=== PATIENT | male | born 1955 | race Caucasian/White ===

== ENCOUNTER → 2016-09-24 | Outpatient (CLI) | payer MEDICARE, MEDICAID ==
[~2016-09-24] MED LIST: ELAVIL50 MG PO; FISH OIL1 GM PO; GLUCOPHAGE1000 MG PO; GLUCOTROL10 MG PO; HALFPRIN81 MG PO; INDERAL LA80 MG PO; INVEGA9 MG PO; INVOKANA100 MG PO; KLONOPIN1 MG PO; LANTUS SOL100 UNIT/1 SUBCUT; LATUDA80 MG PO; LYRICA100 MG PO; MOBIC15 MG PO; NORCO 325-5 MG1 TAB PO; OMEPRAZOLE20 M1 PO; PROBIOTIC1 EAC1 PO; TYLENOL325 MG PO; ULTRAM50 MG PO; ZOCOR20 MG PO; ZOFRAN4 MG PO
== END | disposition short-term general hospital (02) ==
LOC: CLVASC 14:08
DX: I73.9 Peripheral vascular disease, unspecified (principal); E11.40 Type 2 diabetes mellitus with diabetic neuropathy, unspecified

== ENCOUNTER → 2016-10-29 | Outpatient (CLI) | payer MEDICARE, MEDICAID | END | disposition short-term general hospital (02) | LOC: CLVASC 12:48 | DX: L97.519 Non-pressure chronic ulcer of other part of right foot with unspecified severity (principal); Z86.79 Personal history of other diseases of the circulatory system; Z98.62 Peripheral vascular angioplasty status; Z98.890 Other specified postprocedural states ==

== ENCOUNTER → 2016-11-26 | Outpatient (CLI) | payer MEDICARE, MEDICAID | END | disposition short-term general hospital (02) | LOC: CLVASC 04:10 | DX: Z48.812 Encounter for surgical aftercare following surgery on the circulatory system (principal); Z98.62 Peripheral vascular angioplasty status ==